=== PATIENT | male | born 1975 | race Caucasian/White ===

== ENCOUNTER → 2022-12-06 | Day surgery (SDC) | payer OTHER ==
--- NOTE | 2022-12-06 10:57 | RAD REPORT ---
EXAM DESCRIPTION: US - Biopsy Lymph Node - 12/06/2022 10:42 am CLINICAL HISTORY: R22.1 COMPARISON: No comparisons FINDINGS: Preoperative diagnosis: Left submandibular lymphadenopathy. Post operative diagnosis: Same. Conscious Sedation: None Imaging: Continuous ultrasound guidance Contrast used: None Estimated blood loss: Minimal Specimens:4 x 18 gauge core specimens IMPRESSION: Technically successful ultrasound-guided core biopsy of an enlarged left submandibular s pace lymph node.
== END ==
LOC: FNA 09:35
PROVIDERS: ATTEND Otolaryngology Facial Plastic Surgery
DX: I89.8 Other specified noninfective disorders of lymphatic vessels and lymph nodes (principal)
CPT/HCPCS: 38505; 76942; 88305